=== PATIENT | female | born 1940 | race Caucasian/White ===

== ENCOUNTER 2022-03-16 17:39 | Inpatient (IN) | payer MEDICARE, OTHER ==
[2022-03-16] MEDS ORDERED: Acetaminophen 650 MG Suppository PR PRN ×2 (18:57→23:20)
[2022-03-16] MEDS ORDERED: Acetaminophen 325 MG TAB PO PRN (18:57)
[2022-03-16] MEDS ORDERED: Promethazine HCl 25 MG SUPP PR PRN (19:10)
[2022-03-16] MEDS ORDERED: Cepastat Lozenges 1 LOZ PO PRN (19:10)
[2022-03-16] MEDS ORDERED: Bisacodyl 10 MG SUPP PR PRN (19:10)
[2022-03-16] MEDS ORDERED: Benzonatate 100 MG CAP PO PRN (19:10)
[2022-03-16] MEDS ORDERED: Guaifenesin DM 100-10/5 ML UDCUP PO PRN (19:10)
[2022-03-16] MEDS ORDERED: Calcium Carbonate 500 MG ChewTAB PO PRN (19:10)
[2022-03-16] MEDS ORDERED: Bisacodyl 5 MG TAB PO PRN (19:10)
[2022-03-16] MEDS ORDERED: Ondansetron PF 4 MG/2 ML Vial IVP PRN (19:10)
[2022-03-16] MEDS ORDERED: Sodium Chloride 0.65% Nasal 44 ML BOT EA NARE PRN (19:10)
[2022-03-16] MEDS: Famotidine 20 MG TAB PO SCH (21:03)
[2022-03-16] MEDS ORDERED: traMADol HCl 50 MG TAB PO PRN (23:16)
[2022-03-17 01:12] LABS: SARS-CoV-2 NAA Rapid Test Not Detected (NotDetected)
[2022-03-17] MEDS: Levothyroxine Sodium 100 MCG TAB PO SCH (05:57)
[2022-03-17 06:44] LABS: #Lymphocytes 1.1 thou/uL (1.20-3.40); #Monocytes 0.7 thou/uL (0.11-0.59); #Neutrophils 4.8 thou/uL (1.40-6.50); %Basophils 0.7 % (0.0-1.0); %Eosinophils 0.7 % (0.0-10.0); %Lymphocytes 16.7 % (21.0-51.0); %Monocytes 9.8 % (0.0-10.0); %Neutrophils 72.1 % (42.0-75.0); Hemoglobin 8.8 g/dL (12.0-16.0); Mean Corpuscular HGB CONC 31.8 g/dL (32.0-36.0); Mean Corpuscular Hemoglobin 28.7 pg (27.0-31.0); Mean Corpuscular Volume 90.2 fL (78.0-98.0); Mean Platelet Volume 7.3 fL (7.4-10.4); Platelet Count 149 thou/uL (130-400); RBC Distribution Width 14.6 % (11.5-14.5); Red Blood Cell (RBC) Count 3.07 mill/uL (4.20-5.40); White Blood Cell (WBC) Count 6.7 thou/uL (4.8-10.8)
[2022-03-17 06:57] LABS: ALT (SGPT) 39 U/L (8-55); AST (SGOT) 25 U/L (5-34); Albumin 2.8 g/dL (3.4-4.8); Alkaline Phosphatase 104 U/L (40-110); Anion Gap 16 mmol/L (10-20); BUN (Urea Nitrogen) 20 mg/dL (9.8-20.1); Bilirubin, Total 0.8 mg/dL (0.2-1.2); Calc. Creatinine Clearance 80 mL/min (70-130); Calcium 8.5 mg/dL (7.8-10.44); Carbon Dioxide 21 mmol/L (23-31); Chloride 98 mmol/L (98-107); Estimated GFR 74; Globulin 3.2 g/dL (2.4-3.5); Glucose 97 mg/dL (83-110); Sodium 131 mmol/L (136-145)
[2022-03-17] MEDS: Hydrochlorothiazide 25 MG TAB PO SCH (08:50)
[2022-03-17] MEDS: Carvedilol 6.25 MG TAB PO SCH ×2 (08:53→20:33)
[2022-03-17] MEDS: Oxybutynin ER 5 MG TAB PO SCH (08:53)
[2022-03-17] MEDS: Polyethylene Glycol 3350 17 GM Packet PO SCH (08:54)
[2022-03-17] MEDS: Famotidine 20 MG TAB PO SCH ×2 (08:54→20:34)
[2022-03-17] MEDS: Saccharomyces boulardii 250 MG CAP PO SCH ×2 (08:54→20:35)
[2022-03-17] MEDS: Lisinopril 20 MG TAB PO SCH (08:54)
[2022-03-17] MEDS: Ezetimibe 10 MG TAB PO SCH (08:54)
[2022-03-17] MEDS ORDERED: Sulfameth/Trimethoprim DS 800-160mg TAB PO SCH (12:45)
[2022-03-17] MEDS: Sulfameth/Trimethoprim DS 800-160mg TAB PO SCH (20:34)
[2022-03-17] MEDS: Amlodipine 10 MG TAB PO SCH (20:34)
[2022-03-18] MEDS: Levothyroxine Sodium 100 MCG TAB PO SCH (05:37)
[2022-03-18 06:08] LABS: #Basophils 0.1 thou/uL (0.0-0.2); #Lymphocytes 1.3 thou/uL (1.20-3.40); #Monocytes 0.7 thou/uL (0.11-0.59); #Neutrophils 4.4 thou/uL (1.40-6.50); %Basophils 1.3 % (0.0-1.0); %Eosinophils 0.5 % (0.0-10.0); %Lymphocytes 19.6 % (21.0-51.0); %Monocytes 10.8 % (0.0-10.0); %Neutrophils 67.8 % (42.0-75.0); Hemoglobin 8.2 g/dL (12.0-16.0); Mean Corpuscular HGB CONC 32.3 g/dL (32.0-36.0); Mean Corpuscular Hemoglobin 28.8 pg (27.0-31.0); Mean Corpuscular Volume 89.4 fL (78.0-98.0); Platelet Count 139 thou/uL (130-400); RBC Distribution Width 14.5 % (11.5-14.5); Red Blood Cell (RBC) Count 2.84 mill/uL (4.20-5.40); White Blood Cell (WBC) Count 6.5 thou/uL (4.8-10.8)
[2022-03-18 06:20] LABS: Anion Gap 14 mmol/L (10-20); BUN (Urea Nitrogen) 21 mg/dL (9.8-20.1); Calc. Creatinine Clearance 67 mL/min (70-130); Calcium 8.3 mg/dL (7.8-10.44); Carbon Dioxide 22 mmol/L (23-31); Chloride 98 mmol/L (98-107); Estimated GFR 59; Glucose 111 mg/dL (83-110); Potassium 4.1 mmol/L (3.5-5.1); Sodium 130 mmol/L (136-145)
[2022-03-18] MEDS: Ondansetron ODT 4 MG TAB PO PRN ×3 (07:49→20:55)
[2022-03-18] MEDS: Carvedilol 6.25 MG TAB PO SCH ×2 (08:55→20:57)
[2022-03-18] MEDS: Hydrochlorothiazide 25 MG TAB PO SCH (08:55)
[2022-03-18] MEDS: Lisinopril 20 MG TAB PO SCH (08:56)
[2022-03-18] MEDS: Polyethylene Glycol 3350 17 GM Packet PO SCH (08:57)
[2022-03-18] MEDS: Ezetimibe 10 MG TAB PO SCH (09:05)
[2022-03-18] MEDS: Saccharomyces boulardii 250 MG CAP PO SCH ×2 (09:05→20:55)
[2022-03-18] MEDS: Oxybutynin ER 5 MG TAB PO SCH (09:05)
[2022-03-18] MEDS: Famotidine 20 MG TAB PO SCH ×2 (09:06→20:57)
[2022-03-18] MEDS: Sulfameth/Trimethoprim DS 800-160mg TAB PO SCH ×2 (09:07→20:56)
[2022-03-18] MEDS ORDERED: traMADol HCl 50 MG TAB PO PRN (10:00)
[2022-03-18] MEDS ORDERED: Loperamide HCl 2 MG CAP PO PRN (17:06)
[2022-03-18] MEDS ORDERED: Loperamide HCl 2 MG CAP PO SCH (17:15)
[2022-03-18] MEDS: Amlodipine 10 MG TAB PO SCH (20:56)
[2022-03-18] MEDS: Calcium Carbonate 500 MG ChewTAB PO PRN (23:55)
[2022-03-19 00:57] LABS: #Lymphocytes 1.2 thou/uL (1.20-3.40); #Monocytes 0.5 thou/uL (0.11-0.59); %Basophils 0.6 % (0.0-1.0); %Eosinophils 0.3 % (0.0-10.0); %Lymphocytes 20.4 % (21.0-51.0); %Monocytes 9.2 % (0.0-10.0); %Neutrophils 69.6 % (42.0-75.0); Hemoglobin 8.8 g/dL (12.0-16.0); Mean Corpuscular HGB CONC 32.1 g/dL (32.0-36.0); Mean Corpuscular Volume 90.3 fL (78.0-98.0); Mean Platelet Volume 7.7 fL (7.4-10.4); Platelet Count 79 thou/uL (130-400); RBC Distribution Width 14.7 % (11.5-14.5); Red Blood Cell (RBC) Count 3.01 mill/uL (4.20-5.40); White Blood Cell (WBC) Count 5.7 thou/uL (4.8-10.8)
[2022-03-19 01:00] LABS: Anion Gap 15 mmol/L (10-20); BUN (Urea Nitrogen) 16 mg/dL (9.8-20.1); Calc. Creatinine Clearance 76 mL/min (70-130); Calcium 8.4 mg/dL (7.8-10.44); Carbon Dioxide 21 mmol/L (23-31); Chloride 97 mmol/L (98-107); Estimated GFR 70; Glucose 94 mg/dL (83-110); Potassium 4.1 mmol/L (3.5-5.1); Sodium 129 mmol/L (136-145)
[2022-03-19 01:02] LABS: Troponin I Less than 0.010 ng/mL (< 0.028)
[2022-03-19] MEDS: hydrOXYzine 25 MG TAB PO PRN (01:27)
[2022-03-19] MEDS: Levothyroxine Sodium 100 MCG TAB PO SCH (05:36)
[2022-03-19] MEDS: Saccharomyces boulardii 250 MG CAP PO SCH ×2 (08:11→20:50)
[2022-03-19] MEDS: Sulfameth/Trimethoprim DS 800-160mg TAB PO SCH ×2 (08:12→20:50)
[2022-03-19] MEDS: Oxybutynin ER 5 MG TAB PO SCH (08:12)
[2022-03-19] MEDS: Ezetimibe 10 MG TAB PO SCH (08:13)
[2022-03-19] MEDS: Hydrochlorothiazide 25 MG TAB PO SCH (08:13)
[2022-03-19] MEDS: Famotidine 20 MG TAB PO SCH ×2 (08:16→20:50)
[2022-03-19] MEDS: Carvedilol 6.25 MG TAB PO SCH ×2 (08:17→20:50)
[2022-03-19] MEDS: Lisinopril 20 MG TAB PO SCH (08:19)
[2022-03-19] MEDS: Polyethylene Glycol 3350 17 GM Packet PO SCH (09:00)
[2022-03-19] MEDS ORDERED: Polyethylene Glycol 3350 17 GM Packet PO SCH (20:45)
[2022-03-19] MEDS: Amlodipine 10 MG TAB PO SCH (20:50)
[2022-03-20] MEDS: Levothyroxine Sodium 100 MCG TAB PO SCH (05:09)
[2022-03-20] MEDS: Oxybutynin ER 5 MG TAB PO SCH (08:11)
[2022-03-20] MEDS: Saccharomyces boulardii 250 MG CAP PO SCH ×2 (08:11→20:45)
[2022-03-20] MEDS: Sulfameth/Trimethoprim DS 800-160mg TAB PO SCH ×2 (08:11→20:45)
[2022-03-20] MEDS: Famotidine 20 MG TAB PO SCH ×2 (08:18→20:45)
[2022-03-20] MEDS: Ezetimibe 10 MG TAB PO SCH (08:18)
[2022-03-20] MEDS: Hydrochlorothiazide 25 MG TAB PO SCH (08:18)
[2022-03-20] MEDS: Polyethylene Glycol 3350 17 GM Packet PO SCH (09:00)
[2022-03-20] MEDS: Lisinopril 20 MG TAB PO SCH (09:00)
[2022-03-20] MEDS: Carvedilol 6.25 MG TAB PO SCH ×2 (09:00→20:40)
[2022-03-20 10:08] LABS: Hemoglobin 8.8 g/dL (12.0-16.0); Mean Corpuscular HGB CONC 31.3 g/dL (32.0-36.0); Mean Corpuscular Hemoglobin 28.6 pg (27.0-31.0); Mean Corpuscular Volume 91.2 fL (78.0-98.0); Mean Platelet Volume 6.6 fL (7.4-10.4); Platelet Count 143 thou/uL (130-400); RBC Distribution Width 15.4 % (11.5-14.5); Red Blood Cell (RBC) Count 3.06 mill/uL (4.20-5.40); White Blood Cell (WBC) Count 6.1 thou/uL (4.8-10.8)
[2022-03-20] MEDS: Amlodipine 10 MG TAB PO SCH (20:40)
[2022-03-20] MEDS: hydrOXYzine 25 MG TAB PO PRN (21:07)
[2022-03-21] MEDS: Levothyroxine Sodium 100 MCG TAB PO SCH (05:48)
[2022-03-21 05:58] LABS: #Basophils 0.1 thou/uL (0.0-0.2); #Eosinphils 0.1 thou/uL (0.0-0.7); #Lymphocytes 1.1 thou/uL (1.20-3.40); #Monocytes 0.6 thou/uL (0.11-0.59); #Neutrophils 2.7 thou/uL (1.40-6.50); %Basophils 1.4 % (0.0-1.0); %Eosinophils 1.4 % (0.0-10.0); %Lymphocytes 23.8 % (21.0-51.0); %Monocytes 12.3 % (0.0-10.0); %Neutrophils 61.1 % (42.0-75.0); Hemoglobin 8.2 g/dL (12.0-16.0); Mean Corpuscular HGB CONC 31.2 g/dL (32.0-36.0); Mean Corpuscular Hemoglobin 28.3 pg (27.0-31.0); Mean Corpuscular Volume 90.7 fL (78.0-98.0); Platelet Count 139 thou/uL (130-400); RBC Distribution Width 15.5 % (11.5-14.5); White Blood Cell (WBC) Count 4.4 thou/uL (4.8-10.8)
[2022-03-21 06:10] LABS: Anion Gap 13 mmol/L (10-20); BUN (Urea Nitrogen) 9 mg/dL (9.8-20.1); Calc. Creatinine Clearance 79 mL/min (70-130); Calcium 8.3 mg/dL (7.8-10.44); Carbon Dioxide 22 mmol/L (23-31); Chloride 100 mmol/L (98-107); Estimated GFR 72; Glucose 90 mg/dL (83-110); Sodium 131 mmol/L (136-145)
[2022-03-21] MEDS: Saccharomyces boulardii 250 MG CAP PO SCH ×2 (08:13→21:23)
[2022-03-21] MEDS: Sulfameth/Trimethoprim DS 800-160mg TAB PO SCH ×2 (08:13→21:23)
[2022-03-21] MEDS: Polyethylene Glycol 3350 17 GM Packet PO SCH (08:14)
[2022-03-21] MEDS: Hydrochlorothiazide 25 MG TAB PO SCH (08:15)
[2022-03-21] MEDS: Oxybutynin ER 5 MG TAB PO SCH (08:15)
[2022-03-21] MEDS: Ezetimibe 10 MG TAB PO SCH (08:15)
[2022-03-21] MEDS: Famotidine 20 MG TAB PO SCH ×2 (08:16→21:23)
[2022-03-21] MEDS: Carvedilol 6.25 MG TAB PO SCH ×2 (08:16→21:23)
[2022-03-21] MEDS: Lisinopril 20 MG TAB PO SCH (08:18)
[2022-03-21] MEDS: hydrOXYzine 25 MG TAB PO PRN (21:03)
[2022-03-21] MEDS: Ondansetron ODT 4 MG TAB PO PRN (21:03)
[2022-03-21] MEDS ORDERED: Amlodipine 5 MG TAB PO SCH (21:15)
[2022-03-21] MEDS: Amlodipine 10 MG TAB PO SCH (21:18)
[2022-03-22] MEDS: Levothyroxine Sodium 100 MCG TAB PO SCH (05:38)
[2022-03-22] MEDS: Saccharomyces boulardii 250 MG CAP PO SCH ×2 (08:51→21:50)
[2022-03-22] MEDS: Oxybutynin ER 5 MG TAB PO SCH (08:51)
[2022-03-22] MEDS: Famotidine 20 MG TAB PO SCH ×2 (08:51→21:49)
[2022-03-22] MEDS: Lisinopril 20 MG TAB PO SCH (08:52)
[2022-03-22] MEDS: Polyethylene Glycol 3350 17 GM Packet PO SCH (08:52)
[2022-03-22] MEDS: Hydrochlorothiazide 25 MG TAB PO SCH (08:52)
[2022-03-22] MEDS: Ezetimibe 10 MG TAB PO SCH (08:52)
[2022-03-22] MEDS: Carvedilol 6.25 MG TAB PO SCH ×2 (08:52→21:50)
[2022-03-22] MEDS: Acetaminophen 325 MG TAB PO PRN (13:57)
[2022-03-22] MEDS ORDERED: Amlodipine 10 MG TAB PO SCH (21:00)
[2022-03-22] MEDS: Amlodipine 5 MG TAB PO SCH (21:50)
[2022-03-23] MEDS: Levothyroxine Sodium 100 MCG TAB PO SCH (06:19)
[2022-03-23] MEDS: Oxybutynin ER 5 MG TAB PO SCH (08:34)
[2022-03-23] MEDS: Carvedilol 6.25 MG TAB PO SCH ×2 (08:34→21:24)
[2022-03-23] MEDS: Saccharomyces boulardii 250 MG CAP PO SCH ×2 (08:34→21:24)
[2022-03-23] MEDS: Hydrochlorothiazide 25 MG TAB PO SCH (08:35)
[2022-03-23] MEDS: Ezetimibe 10 MG TAB PO SCH (08:35)
[2022-03-23] MEDS: Polyethylene Glycol 3350 17 GM Packet PO SCH (08:35)
[2022-03-23] MEDS: Famotidine 20 MG TAB PO SCH ×2 (08:35→21:23)
[2022-03-23] MEDS: Lisinopril 20 MG TAB PO SCH (08:39)
[2022-03-23] MEDS: Amlodipine 5 MG TAB PO SCH (21:22)
[2022-03-23] MEDS: hydrOXYzine 25 MG TAB PO PRN (21:23)
[2022-03-24] MEDS: Levothyroxine Sodium 100 MCG TAB PO SCH (05:49)
[2022-03-24 06:24] LABS: Anion Gap 13 mmol/L (10-20); BUN (Urea Nitrogen) 8 mg/dL (9.8-20.1); Calc. Creatinine Clearance 81 mL/min (70-130); Calcium 8.3 mg/dL (7.8-10.44); Carbon Dioxide 21 mmol/L (23-31); Chloride 100 mmol/L (98-107); Estimated GFR 74; Glucose 89 mg/dL (83-110); Potassium 3.8 mmol/L (3.5-5.1); Sodium 130 mmol/L (136-145)
[2022-03-24 06:40] LABS: #Basophils 0.1 thou/uL (0.0-0.2); #Eosinphils 0.1 thou/uL (0.0-0.7); #Lymphocytes 1.6 thou/uL (1.20-3.40); #Monocytes 0.7 thou/uL (0.11-0.59); %Basophils 1.3 % (0.0-1.0); %Lymphocytes 36.6 % (21.0-51.0); %Monocytes 15.7 % (0.0-10.0); %Neutrophils 45.4 % (42.0-75.0); Hemoglobin 8.6 g/dL (12.0-16.0); Mean Corpuscular HGB CONC 31.1 g/dL (32.0-36.0); Mean Corpuscular Hemoglobin 28.9 pg (27.0-31.0); Mean Platelet Volume 6.4 fL (7.4-10.4); Platelet Count 149 thou/uL (130-400); RBC Distribution Width 16.3 % (11.5-14.5); Red Blood Cell (RBC) Count 2.99 mill/uL (4.20-5.40); White Blood Cell (WBC) Count 4.5 thou/uL (4.8-10.8)
[2022-03-24] MEDS: Ezetimibe 10 MG TAB PO SCH (08:05)
[2022-03-24] MEDS: Saccharomyces boulardii 250 MG CAP PO SCH ×2 (08:05→21:03)
[2022-03-24] MEDS: Hydrochlorothiazide 25 MG TAB PO SCH (08:05)
[2022-03-24] MEDS: Famotidine 20 MG TAB PO SCH ×2 (08:05→21:02)
[2022-03-24] MEDS: Oxybutynin ER 5 MG TAB PO SCH (08:05)
[2022-03-24] MEDS: Carvedilol 6.25 MG TAB PO SCH ×2 (08:05→21:03)
[2022-03-24] MEDS: Polyethylene Glycol 3350 17 GM Packet PO SCH (08:07)
[2022-03-24] MEDS: Lisinopril 20 MG TAB PO SCH (08:10)
[2022-03-24] MEDS: Ondansetron ODT 4 MG TAB PO PRN (11:09)
[2022-03-24] MEDS: Metoclopramide HCl 10 MG TAB PO SCH (16:10)
[2022-03-24] MEDS: Amlodipine 5 MG TAB PO SCH (21:03)
[2022-03-25] MEDS: Levothyroxine Sodium 100 MCG TAB PO SCH (05:54)
[2022-03-25] MEDS: Metoclopramide HCl 10 MG TAB PO SCH ×2 (07:35→17:52)
[2022-03-25] MEDS: Ezetimibe 10 MG TAB PO SCH (08:18)
[2022-03-25] MEDS: Saccharomyces boulardii 250 MG CAP PO SCH ×2 (08:18→20:15)
[2022-03-25] MEDS: Famotidine 20 MG TAB PO SCH ×2 (08:18→20:15)
[2022-03-25] MEDS: Oxybutynin ER 5 MG TAB PO SCH (08:19)
[2022-03-25] MEDS: Senokot S 8.6-50 MG TAB PO PRN (08:19)
[2022-03-25] MEDS: Hydrochlorothiazide 25 MG TAB PO SCH (08:20)
[2022-03-25] MEDS: Lisinopril 20 MG TAB PO SCH (08:21)
[2022-03-25] MEDS: Polyethylene Glycol 3350 17 GM Packet PO SCH (08:21)
[2022-03-25] MEDS: Carvedilol 6.25 MG TAB PO SCH ×2 (08:21→20:15)
[2022-03-25] MEDS: Acetaminophen 325 MG TAB PO PRN (20:16)
[2022-03-25] MEDS: Amlodipine 5 MG TAB PO SCH (20:24)
[2022-03-26 05:45] LABS: #Basophils 0.1 thou/uL (0.0-0.2); #Eosinphils 0.1 thou/uL (0.0-0.7); #Lymphocytes 2.2 thou/uL (1.20-3.40); #Monocytes 0.6 thou/uL (0.11-0.59); #Neutrophils 2.3 thou/uL (1.40-6.50); %Basophils 1.2 % (0.0-1.0); %Eosinophils 1.8 % (0.0-10.0); %Monocytes 11.9 % (0.0-10.0); %Neutrophils 43.2 % (42.0-75.0); Hemoglobin 9.5 g/dL (12.0-16.0); Mean Corpuscular HGB CONC 31.3 g/dL (32.0-36.0); Mean Corpuscular Hemoglobin 29.2 pg (27.0-31.0); Mean Corpuscular Volume 93.3 fL (78.0-98.0); Mean Platelet Volume 6.2 fL (7.4-10.4); Platelet Count 179 thou/uL (130-400); RBC Distribution Width 16.8 % (11.5-14.5); Red Blood Cell (RBC) Count 3.23 mill/uL (4.20-5.40); White Blood Cell (WBC) Count 5.3 thou/uL (4.8-10.8)
[2022-03-26 05:58] LABS: Anion Gap 13 mmol/L (10-20); BUN (Urea Nitrogen) 7 mg/dL (9.8-20.1); Calc. Creatinine Clearance 84 mL/min (70-130); Calcium 8.4 mg/dL (7.8-10.44); Carbon Dioxide 21 mmol/L (23-31); Chloride 102 mmol/L (98-107); Estimated GFR 77; Glucose 93 mg/dL (83-110); Potassium 3.7 mmol/L (3.5-5.1); Sodium 132 mmol/L (136-145)
[2022-03-26] MEDS: Levothyroxine Sodium 100 MCG TAB PO SCH (06:03)
[2022-03-26] MEDS: Metoclopramide HCl 10 MG TAB PO SCH ×2 (07:21→16:09)
[2022-03-26] MEDS: Famotidine 20 MG TAB PO SCH (07:50)
[2022-03-26] MEDS: Saccharomyces boulardii 250 MG CAP PO SCH ×2 (07:51→20:35)
[2022-03-26] MEDS: Oxybutynin ER 5 MG TAB PO SCH (07:51)
[2022-03-26] MEDS: Carvedilol 6.25 MG TAB PO SCH ×2 (07:52→20:35)
[2022-03-26] MEDS: Hydrochlorothiazide 25 MG TAB PO SCH (07:53)
[2022-03-26] MEDS: Ezetimibe 10 MG TAB PO SCH (07:53)
[2022-03-26] MEDS: Lisinopril 20 MG TAB PO SCH (07:53)
[2022-03-26] MEDS: Polyethylene Glycol 3350 17 GM Packet PO SCH (07:55)
[2022-03-26 16:59] LABS: Iron 57 ug/dL (50-170); Iron Binding Capacity, Total 231 mcg/dL (265-497)
[2022-03-26] MEDS: Amlodipine 5 MG TAB PO SCH (20:35)
[2022-03-27] MEDS: Levothyroxine Sodium 100 MCG TAB PO SCH (06:13)
[2022-03-27] MEDS: Metoclopramide HCl 10 MG TAB PO SCH ×2 (07:10→16:18)
[2022-03-27 08:03] LABS: #Basophils 0.1 thou/uL (0.0-0.2); #Eosinphils 0.1 thou/uL (0.0-0.7); #Lymphocytes 1.8 thou/uL (1.20-3.40); #Monocytes 0.5 thou/uL (0.11-0.59); #Neutrophils 2.5 thou/uL (1.40-6.50); %Basophils 1.5 % (0.0-1.0); %Eosinophils 1.4 % (0.0-10.0); %Lymphocytes 35.5 % (21.0-51.0); %Monocytes 10.6 % (0.0-10.0); Hemoglobin 9.6 g/dL (12.0-16.0); Mean Corpuscular HGB CONC 31.5 g/dL (32.0-36.0); Mean Corpuscular Hemoglobin 29.6 pg (27.0-31.0); Mean Corpuscular Volume 93.8 fL (78.0-98.0); Mean Platelet Volume 6.4 fL (7.4-10.4); Platelet Count 167 thou/uL (130-400); Red Blood Cell (RBC) Count 3.23 mill/uL (4.20-5.40)
[2022-03-27 08:14] LABS: Anion Gap 14 mmol/L (10-20); BUN (Urea Nitrogen) 7 mg/dL (9.8-20.1); Calc. Creatinine Clearance 89 mL/min (70-130); Calcium 8.2 mg/dL (7.8-10.44); Carbon Dioxide 21 mmol/L (23-31); Chloride 103 mmol/L (98-107); Estimated GFR 83; Glucose 94 mg/dL (83-110); Potassium 3.6 mmol/L (3.5-5.1); Sodium 134 mmol/L (136-145)
[2022-03-27] MEDS: Carvedilol 6.25 MG TAB PO SCH ×2 (08:40→21:42)
[2022-03-27] MEDS: Oxybutynin ER 5 MG TAB PO SCH (08:41)
[2022-03-27] MEDS: Ezetimibe 10 MG TAB PO SCH (08:41)
[2022-03-27] MEDS: Lisinopril 20 MG TAB PO SCH (08:41)
[2022-03-27] MEDS: Saccharomyces boulardii 250 MG CAP PO SCH ×2 (08:41→21:42)
[2022-03-27] MEDS: Polyethylene Glycol 3350 17 GM Packet PO SCH (08:42)
[2022-03-27] MEDS: Acetaminophen 325 MG TAB PO PRN (21:41)
[2022-03-27] MEDS: Amlodipine 5 MG TAB PO SCH (21:42)
[2022-03-28] MEDS: Levothyroxine Sodium 100 MCG TAB PO SCH (06:24)
[2022-03-28] MEDS: Metoclopramide HCl 10 MG TAB PO SCH ×2 (07:16→15:59)
[2022-03-28] MEDS: Oxybutynin ER 5 MG TAB PO SCH (08:06)
[2022-03-28] MEDS: Saccharomyces boulardii 250 MG CAP PO SCH ×2 (08:06→20:48)
[2022-03-28] MEDS: Ezetimibe 10 MG TAB PO SCH (08:06)
[2022-03-28] MEDS: Polyethylene Glycol 3350 17 GM Packet PO SCH (08:06)
[2022-03-28] MEDS: Carvedilol 6.25 MG TAB PO SCH ×2 (08:06→20:49)
[2022-03-28] MEDS: Lisinopril 20 MG TAB PO SCH (08:07)
[2022-03-28] MEDS: Acetaminophen 325 MG TAB PO PRN (19:13)
[2022-03-28] MEDS: Amlodipine 5 MG TAB PO SCH (20:48)
[2022-03-29] MEDS: Levothyroxine Sodium 100 MCG TAB PO SCH (05:36)
[2022-03-29] MEDS: Polyethylene Glycol 3350 17 GM Packet PO SCH (09:29)
[2022-03-29] MEDS: Oxybutynin ER 5 MG TAB PO SCH (09:29)
[2022-03-29] MEDS: Carvedilol 6.25 MG TAB PO SCH ×2 (09:30→20:47)
[2022-03-29] MEDS: Metoclopramide HCl 10 MG TAB PO SCH ×2 (09:30→17:16)
[2022-03-29] MEDS: Ezetimibe 10 MG TAB PO SCH (09:30)
[2022-03-29] MEDS: Saccharomyces boulardii 250 MG CAP PO SCH ×2 (09:30→20:32)
[2022-03-29] MEDS: Lisinopril 20 MG TAB PO SCH (09:30)
[2022-03-30] MEDS: Levothyroxine Sodium 100 MCG TAB PO SCH (05:24)
[2022-03-30] MEDS: Metoclopramide HCl 10 MG TAB PO SCH ×2 (07:45→16:53)
[2022-03-30] MEDS: Saccharomyces boulardii 250 MG CAP PO SCH ×2 (08:41→20:29)
[2022-03-30] MEDS: Oxybutynin ER 5 MG TAB PO SCH (08:41)
[2022-03-30] MEDS: Carvedilol 6.25 MG TAB PO SCH ×2 (08:42→20:29)
[2022-03-30] MEDS: Lisinopril 20 MG TAB PO SCH (08:42)
[2022-03-30] MEDS: Ezetimibe 10 MG TAB PO SCH (08:42)
[2022-03-30] MEDS: Polyethylene Glycol 3350 17 GM Packet PO SCH (08:43)
[2022-03-31] MEDS: Levothyroxine Sodium 100 MCG TAB PO SCH (05:36)
[2022-03-31] MEDS: Metoclopramide HCl 10 MG TAB PO SCH ×2 (09:06→16:41)
[2022-03-31] MEDS: Carvedilol 6.25 MG TAB PO SCH ×2 (09:06→21:07)
[2022-03-31] MEDS: Ezetimibe 10 MG TAB PO SCH (09:07)
[2022-03-31] MEDS: Oxybutynin ER 5 MG TAB PO SCH (09:07)
[2022-03-31] MEDS: Saccharomyces boulardii 250 MG CAP PO SCH ×2 (09:07→21:07)
[2022-03-31] MEDS: Polyethylene Glycol 3350 17 GM Packet PO SCH (09:08)
[2022-03-31] MEDS: Lisinopril 20 MG TAB PO SCH (09:08)
[2022-04-01] MEDS: Levothyroxine Sodium 100 MCG TAB PO SCH (05:57)
[2022-04-01] MEDS: Metoclopramide HCl 10 MG TAB PO SCH ×2 (08:07→17:38)
[2022-04-01] MEDS: Lisinopril 20 MG TAB PO SCH (08:07)
[2022-04-01] MEDS: Ezetimibe 10 MG TAB PO SCH (08:07)
[2022-04-01] MEDS: Saccharomyces boulardii 250 MG CAP PO SCH ×2 (08:07→21:36)
[2022-04-01] MEDS: Oxybutynin ER 5 MG TAB PO SCH (08:07)
[2022-04-01] MEDS: Carvedilol 6.25 MG TAB PO SCH ×2 (08:08→21:35)
[2022-04-01] MEDS: Polyethylene Glycol 3350 17 GM Packet PO SCH ×2 (08:08→08:18)
[2022-04-01] MEDS ORDERED: Carvedilol 6.25 MG TAB PO SCH (08:45)
[2022-04-01] MEDS ORDERED: Sodium Chloride 0.9% 500 ML IVPB SCH (13:00)
[2022-04-01] MEDS: Nystatin Powder 15 GM BOT TOP SCH (21:36)
[2022-04-02] MEDS: Senokot S 8.6-50 MG TAB PO PRN (04:13)
[2022-04-02] MEDS: Levothyroxine Sodium 100 MCG TAB PO SCH (05:07)
[2022-04-02 05:54] LABS: #Basophils 0.1 thou/uL (0.0-0.2); #Lymphocytes 1.7 thou/uL (1.20-3.40); #Monocytes 0.6 thou/uL (0.11-0.59); #Neutrophils 1.9 thou/uL (1.40-6.50); %Basophils 1.2 % (0.0-1.0); %Eosinophils 0.7 % (0.0-10.0); %Lymphocytes 39.9 % (21.0-51.0); %Monocytes 13.6 % (0.0-10.0); %Neutrophils 44.5 % (42.0-75.0); Hemoglobin 9.6 g/dL (12.0-16.0); Mean Corpuscular HGB CONC 31.1 g/dL (32.0-36.0); Mean Corpuscular Hemoglobin 29.3 pg (27.0-31.0); Mean Corpuscular Volume 94.3 fL (78.0-98.0); Mean Platelet Volume 5.8 fL (7.4-10.4); Platelet Count 158 thou/uL (130-400); Red Blood Cell (RBC) Count 3.29 mill/uL (4.20-5.40); White Blood Cell (WBC) Count 4.2 thou/uL (4.8-10.8)
[2022-04-02 06:10] LABS: ALT (SGPT) 14 U/L (8-55); AST (SGOT) 11 U/L (5-34); Albumin 2.9 g/dL (3.4-4.8); Alkaline Phosphatase 67 U/L (40-110); Anion Gap 15 mmol/L (10-20); BUN (Urea Nitrogen) 10 mg/dL (9.8-20.1); Bilirubin, Total 0.7 mg/dL (0.2-1.2); Calc. Creatinine Clearance 91 mL/min (70-130); Calcium 8.1 mg/dL (7.8-10.44); Carbon Dioxide 20 mmol/L (23-31); Chloride 102 mmol/L (98-107); Estimated GFR 87; Globulin 3.3 g/dL (2.4-3.5); Glucose 92 mg/dL (83-110); Sodium 133 mmol/L (136-145)
[2022-04-02 06:16] LABS: Protein, Total 6.2 g/dL (5.8-8.1)
[2022-04-02] MEDS: Saccharomyces boulardii 250 MG CAP PO SCH ×2 (07:49→20:35)
[2022-04-02] MEDS: Oxybutynin ER 5 MG TAB PO SCH (07:49)
[2022-04-02] MEDS: Metoclopramide HCl 10 MG TAB PO SCH ×2 (07:49→17:20)
[2022-04-02] MEDS: Ezetimibe 10 MG TAB PO SCH (07:49)
[2022-04-02] MEDS: Carvedilol 6.25 MG TAB PO SCH ×2 (07:50→20:34)
[2022-04-02] MEDS: Lisinopril 20 MG TAB PO SCH (07:50)
[2022-04-02] MEDS: Nystatin Powder 15 GM BOT TOP SCH ×2 (07:53→20:36)
[2022-04-02] MEDS: Polyethylene Glycol 3350 17 GM Packet PO SCH (07:54)
[2022-04-03] MEDS: Levothyroxine Sodium 100 MCG TAB PO SCH (05:53)
[2022-04-03] MEDS: Metoclopramide HCl 10 MG TAB PO SCH ×2 (08:13→16:42)
[2022-04-03] MEDS: Saccharomyces boulardii 250 MG CAP PO SCH ×2 (08:13→22:00)
[2022-04-03] MEDS: Lisinopril 20 MG TAB PO SCH (08:14)
[2022-04-03] MEDS: Oxybutynin ER 5 MG TAB PO SCH (08:14)
[2022-04-03] MEDS: Ezetimibe 10 MG TAB PO SCH (08:15)
[2022-04-03] MEDS: Nystatin Powder 15 GM BOT TOP SCH (08:16)
[2022-04-03] MEDS: Polyethylene Glycol 3350 17 GM Packet PO SCH (08:38)
[2022-04-03] MEDS: Carvedilol 6.25 MG TAB PO SCH ×2 (11:00→21:59)
[2022-04-04] MEDS: Nystatin Powder 15 GM BOT TOP SCH ×3 (01:06→20:22)
[2022-04-04] MEDS: Levothyroxine Sodium 100 MCG TAB PO SCH (06:14)
[2022-04-04] MEDS: Metoclopramide HCl 10 MG TAB PO SCH ×2 (07:35→16:35)
[2022-04-04] MEDS: Polyethylene Glycol 3350 17 GM Packet PO SCH (08:00)
[2022-04-04] MEDS: Oxybutynin ER 5 MG TAB PO SCH (08:01)
[2022-04-04] MEDS: Saccharomyces boulardii 250 MG CAP PO SCH ×2 (08:01→20:17)
[2022-04-04] MEDS: Ezetimibe 10 MG TAB PO SCH (08:02)
[2022-04-04] MEDS: Carvedilol 6.25 MG TAB PO SCH ×2 (08:02→20:17)
[2022-04-04] MEDS: Lisinopril 20 MG TAB PO SCH (08:03)
[2022-04-05] MEDS: Levothyroxine Sodium 100 MCG TAB PO SCH (06:08)
[2022-04-05] MEDS: Oxybutynin ER 5 MG TAB PO SCH (09:03)
[2022-04-05] MEDS: Lisinopril 20 MG TAB PO SCH (09:03)
[2022-04-05] MEDS: Carvedilol 6.25 MG TAB PO SCH ×2 (09:04→21:12)
[2022-04-05] MEDS: Ezetimibe 10 MG TAB PO SCH (09:04)
[2022-04-05] MEDS: Polyethylene Glycol 3350 17 GM Packet PO SCH (09:04)
[2022-04-05] MEDS: Metoclopramide HCl 10 MG TAB PO SCH ×2 (09:04→16:39)
[2022-04-05] MEDS: Nystatin Powder 15 GM BOT TOP SCH ×2 (09:04→21:13)
[2022-04-05] MEDS: Saccharomyces boulardii 250 MG CAP PO SCH ×2 (09:04→21:12)
[2022-04-06] MEDS: Levothyroxine Sodium 100 MCG TAB PO SCH (05:49)
[2022-04-06] MEDS: Metoclopramide HCl 10 MG TAB PO SCH ×2 (07:51→16:22)
[2022-04-06] MEDS: Carvedilol 6.25 MG TAB PO SCH ×2 (09:24→20:57)
[2022-04-06] MEDS: Ezetimibe 10 MG TAB PO SCH (09:24)
[2022-04-06] MEDS: Lisinopril 20 MG TAB PO SCH (09:24)
[2022-04-06] MEDS: Saccharomyces boulardii 250 MG CAP PO SCH ×2 (09:24→20:58)
[2022-04-06] MEDS: Oxybutynin ER 5 MG TAB PO SCH (09:25)
[2022-04-06] MEDS: Polyethylene Glycol 3350 17 GM Packet PO SCH (09:26)
[2022-04-06] MEDS: Nystatin Powder 15 GM BOT TOP SCH ×2 (09:27→20:58)
[2022-04-07] MEDS: Levothyroxine Sodium 100 MCG TAB PO SCH (05:50)
[2022-04-07] MEDS: Metoclopramide HCl 10 MG TAB PO SCH ×2 (07:10→16:37)
[2022-04-07] MEDS: Ezetimibe 10 MG TAB PO SCH (08:17)
[2022-04-07] MEDS: Carvedilol 6.25 MG TAB PO SCH ×2 (08:17→20:59)
[2022-04-07] MEDS: Saccharomyces boulardii 250 MG CAP PO SCH ×2 (08:17→20:59)
[2022-04-07] MEDS: Oxybutynin ER 5 MG TAB PO SCH (08:17)
[2022-04-07] MEDS: Nystatin Powder 15 GM BOT TOP SCH ×2 (08:21→21:00)
[2022-04-07] MEDS: Lisinopril 20 MG TAB PO SCH (08:22)
[2022-04-07] MEDS: Polyethylene Glycol 3350 17 GM Packet PO SCH (08:22)
[2022-04-08] MEDS: Levothyroxine Sodium 100 MCG TAB PO SCH (05:17)
[2022-04-08] MEDS: Oxybutynin ER 5 MG TAB PO SCH (08:06)
[2022-04-08] MEDS: Saccharomyces boulardii 250 MG CAP PO SCH ×2 (08:06→20:11)
[2022-04-08] MEDS: Ezetimibe 10 MG TAB PO SCH (08:07)
[2022-04-08] MEDS: Lisinopril 20 MG TAB PO SCH (08:07)
[2022-04-08] MEDS: Metoclopramide HCl 10 MG TAB PO SCH ×2 (08:07→16:20)
[2022-04-08] MEDS: Nystatin Powder 15 GM BOT TOP SCH ×2 (08:08→20:11)
[2022-04-08] MEDS: Carvedilol 6.25 MG TAB PO SCH ×2 (08:09→20:11)
[2022-04-08] MEDS: Polyethylene Glycol 3350 17 GM Packet PO SCH (08:09)
[2022-04-08] MEDS ORDERED: Senokot S 8.6-50 MG TAB PO PRN (09:15)
[2022-04-09] MEDS: Levothyroxine Sodium 100 MCG TAB PO SCH (06:29)
[2022-04-09] MEDS: Metoclopramide HCl 10 MG TAB PO SCH ×2 (07:40→16:18)
[2022-04-09] MEDS: Nystatin Powder 15 GM BOT TOP SCH ×2 (07:49→20:59)
[2022-04-09] MEDS: Saccharomyces boulardii 250 MG CAP PO SCH ×2 (07:50→20:56)
[2022-04-09] MEDS: Oxybutynin ER 5 MG TAB PO SCH (07:50)
[2022-04-09] MEDS: Ezetimibe 10 MG TAB PO SCH (07:50)
[2022-04-09] MEDS: Lisinopril 20 MG TAB PO SCH (07:51)
[2022-04-09] MEDS: Carvedilol 6.25 MG TAB PO SCH ×2 (07:51→20:56)
[2022-04-09] MEDS: Polyethylene Glycol 3350 17 GM Packet PO SCH (07:52)
[2022-04-09 09:45] LABS: Anion Gap 15 mmol/L (10-20); BUN (Urea Nitrogen) 8 mg/dL (9.8-20.1); Calc. Creatinine Clearance 82 mL/min (70-130); Calcium 8.2 mg/dL (7.8-10.44); Carbon Dioxide 21 mmol/L (23-31); Chloride 103 mmol/L (98-107); Estimated GFR 79; Glucose 133 mg/dL (83-110); Sodium 135 mmol/L (136-145)
[2022-04-09 09:49] LABS: #Lymphocytes 1.8 thou/uL (1.20-3.40); #Monocytes 0.5 thou/uL (0.11-0.59); #Neutrophils 2.7 thou/uL (1.40-6.50); %Basophils 0.7 % (0.0-1.0); %Eosinophils 0.7 % (0.0-10.0); %Lymphocytes 35.5 % (21.0-51.0); %Monocytes 9.2 % (0.0-10.0); %Neutrophils 53.9 % (42.0-75.0); Hemoglobin 9.7 g/dL (12.0-16.0); Mean Corpuscular HGB CONC 31.6 g/dL (32.0-36.0); Mean Corpuscular Hemoglobin 29.7 pg (27.0-31.0); Platelet Count 163 thou/uL (130-400); RBC Distribution Width 15.6 % (11.5-14.5); Red Blood Cell (RBC) Count 3.25 mill/uL (4.20-5.40)
[2022-04-09] MEDS: Calcium Carbonate 500 MG ChewTAB PO PRN (21:54)
[2022-04-10] MEDS: Levothyroxine Sodium 100 MCG TAB PO SCH (05:34)
[2022-04-10] MEDS: Saccharomyces boulardii 250 MG CAP PO SCH ×2 (09:10→20:15)
[2022-04-10] MEDS: Oxybutynin ER 5 MG TAB PO SCH (09:10)
[2022-04-10] MEDS: Lisinopril 20 MG TAB PO SCH (09:10)
[2022-04-10] MEDS: Carvedilol 6.25 MG TAB PO SCH ×2 (09:11→20:12)
[2022-04-10] MEDS: Metoclopramide HCl 10 MG TAB PO SCH ×2 (09:11→16:30)
[2022-04-10] MEDS: Ezetimibe 10 MG TAB PO SCH (09:11)
[2022-04-10] MEDS: Nystatin Powder 15 GM BOT TOP SCH ×2 (09:11→20:15)
[2022-04-10] MEDS: Polyethylene Glycol 3350 17 GM Packet PO SCH (09:12)
[2022-04-10 15:01] VITALS: BMI 35.2
[2022-04-11] MEDS: Levothyroxine Sodium 100 MCG TAB PO SCH (05:45)
[2022-04-11] MEDS: Nystatin Powder 15 GM BOT TOP SCH ×2 (08:56→20:22)
[2022-04-11] MEDS: Oxybutynin ER 5 MG TAB PO SCH (08:56)
[2022-04-11] MEDS: Polyethylene Glycol 3350 17 GM Packet PO SCH (08:56)
[2022-04-11] MEDS: Metoclopramide HCl 10 MG TAB PO SCH ×2 (08:56→17:08)
[2022-04-11] MEDS: Carvedilol 6.25 MG TAB PO SCH ×2 (08:57→20:23)
[2022-04-11] MEDS: Saccharomyces boulardii 250 MG CAP PO SCH ×2 (08:57→20:24)
[2022-04-11] MEDS: Lisinopril 20 MG TAB PO SCH (08:57)
[2022-04-11] MEDS: Ezetimibe 10 MG TAB PO SCH (08:57)
[2022-04-12] MEDS: Levothyroxine Sodium 100 MCG TAB PO SCH (06:06)
[2022-04-12 06:25] LABS: #Basophils 0.1 thou/uL (0.0-0.2); #Lymphocytes 1.7 thou/uL (1.20-3.40); #Monocytes 0.4 thou/uL (0.11-0.59); #Neutrophils 2.2 thou/uL (1.40-6.50); %Basophils 1.2 % (0.0-1.0); %Eosinophils 0.7 % (0.0-10.0); %Lymphocytes 39.2 % (21.0-51.0); %Monocytes 9.7 % (0.0-10.0); %Neutrophils 49.2 % (42.0-75.0); Hemoglobin 9.7 g/dL (12.0-16.0); Mean Corpuscular HGB CONC 31.8 g/dL (32.0-36.0); Mean Corpuscular Hemoglobin 29.5 pg (27.0-31.0); Mean Corpuscular Volume 92.8 fL (78.0-98.0); Mean Platelet Volume 6.3 fL (7.4-10.4); Platelet Count 162 thou/uL (130-400); RBC Distribution Width 15.6 % (11.5-14.5); Red Blood Cell (RBC) Count 3.27 mill/uL (4.20-5.40); White Blood Cell (WBC) Count 4.4 thou/uL (4.8-10.8)
[2022-04-12 06:49] LABS: Anion Gap 14 mmol/L (10-20); BUN (Urea Nitrogen) 7 mg/dL (9.8-20.1); Calc. Creatinine Clearance 93 mL/min (70-130); Calcium 8.3 mg/dL (7.8-10.44); Carbon Dioxide 24 mmol/L (23-31); Chloride 104 mmol/L (98-107); Estimated GFR 87; Glucose 90 mg/dL (83-110); Potassium 3.8 mmol/L (3.5-5.1); Sodium 138 mmol/L (136-145)
[2022-04-12] MEDS: Lisinopril 20 MG TAB PO SCH (08:45)
[2022-04-12] MEDS: Saccharomyces boulardii 250 MG CAP PO SCH ×2 (08:45→20:31)
[2022-04-12] MEDS: Carvedilol 6.25 MG TAB PO SCH ×2 (08:45→20:31)
[2022-04-12] MEDS: Ezetimibe 10 MG TAB PO SCH (08:45)
[2022-04-12] MEDS: Nystatin Powder 15 GM BOT TOP SCH ×2 (08:46→20:25)
[2022-04-12] MEDS: Metoclopramide HCl 10 MG TAB PO SCH ×2 (08:46→16:17)
[2022-04-12] MEDS: Polyethylene Glycol 3350 17 GM Packet PO SCH (08:46)
[2022-04-12] MEDS: Oxybutynin ER 5 MG TAB PO SCH (08:47)
[2022-04-12] MEDS ORDERED: Oxybutynin ER 5 MG TAB PO SCH (12:45)
[2022-04-13] MEDS: Levothyroxine Sodium 100 MCG TAB PO SCH (05:30)
[2022-04-13] MEDS: Oxybutynin ER 5 MG TAB PO SCH (07:37)
[2022-04-13] MEDS: Lisinopril 20 MG TAB PO SCH (07:37)
[2022-04-13] MEDS: Saccharomyces boulardii 250 MG CAP PO SCH ×2 (07:37→20:18)
[2022-04-13] MEDS: Carvedilol 6.25 MG TAB PO SCH ×2 (07:37→20:18)
[2022-04-13] MEDS: Nystatin Powder 15 GM BOT TOP SCH ×2 (07:38→20:18)
[2022-04-13] MEDS: Ezetimibe 10 MG TAB PO SCH (07:38)
[2022-04-13] MEDS: Artificial Tear Sol 15 ML BOT EA EYE PRN ×2 (07:38→20:17)
[2022-04-13] MEDS: Polyethylene Glycol 3350 17 GM Packet PO SCH (07:38)
[2022-04-13] MEDS: Metoclopramide HCl 10 MG TAB PO SCH ×2 (07:38→16:18)
[2022-04-14] MEDS: Levothyroxine Sodium 100 MCG TAB PO SCH (05:09)
[2022-04-14] MEDS: Metoclopramide HCl 10 MG TAB PO SCH ×2 (07:26→16:57)
[2022-04-14] MEDS: Saccharomyces boulardii 250 MG CAP PO SCH ×2 (08:24→21:54)
[2022-04-14] MEDS: Oxybutynin ER 5 MG TAB PO SCH (08:25)
[2022-04-14] MEDS: Lisinopril 20 MG TAB PO SCH (08:25)
[2022-04-14] MEDS: Carvedilol 6.25 MG TAB PO SCH ×2 (08:26→21:54)
[2022-04-14] MEDS: Ezetimibe 10 MG TAB PO SCH (08:27)
[2022-04-14] MEDS: Nystatin Powder 15 GM BOT TOP SCH ×2 (08:27→21:53)
[2022-04-14] MEDS: Polyethylene Glycol 3350 17 GM Packet PO SCH (08:28)
[2022-04-14 23:39] VITALS: BP 155/72; TEMP 97.6
[2022-04-15 05:30] LABS: #Lymphocytes 1.6 thou/uL (1.20-3.40); #Monocytes 0.4 thou/uL (0.11-0.59); #Neutrophils 1.7 thou/uL (1.40-6.50); %Eosinophils 1.1 % (0.0-10.0); %Lymphocytes 41.5 % (21.0-51.0); %Monocytes 11.2 % (0.0-10.0); %Neutrophils 45.2 % (42.0-75.0); Hemoglobin 9.5 g/dL (12.0-16.0); Mean Corpuscular HGB CONC 32.5 g/dL (32.0-36.0); Mean Corpuscular Volume 92.5 fL (78.0-98.0); Mean Platelet Volume 6.6 fL (7.4-10.4); Platelet Count 170 thou/uL (130-400); RBC Distribution Width 14.9 % (11.5-14.5); Red Blood Cell (RBC) Count 3.15 mill/uL (4.20-5.40); White Blood Cell (WBC) Count 3.8 thou/uL (4.8-10.8)
[2022-04-15 05:42] LABS: Anion Gap 12 mmol/L (10-20); BUN (Urea Nitrogen) 8 mg/dL (9.8-20.1); Calc. Creatinine Clearance 94 mL/min (70-130); Calcium 8.4 mg/dL (7.8-10.44); Carbon Dioxide 25 mmol/L (23-31); Chloride 106 mmol/L (98-107); Estimated GFR 87; Glucose 94 mg/dL (83-110); Potassium 3.6 mmol/L (3.5-5.1); Sodium 139 mmol/L (136-145)
[2022-04-15] MEDS: Levothyroxine Sodium 100 MCG TAB PO SCH (06:16)
[2022-04-15] MEDS: Polyethylene Glycol 3350 17 GM Packet PO SCH (07:52)
[2022-04-15] MEDS: Saccharomyces boulardii 250 MG CAP PO SCH (07:52)
[2022-04-15] MEDS: Carvedilol 6.25 MG TAB PO SCH (07:52)
[2022-04-15] MEDS: Oxybutynin ER 5 MG TAB PO SCH (07:53)
[2022-04-15] MEDS: Lisinopril 20 MG TAB PO SCH (07:53)
[2022-04-15] MEDS: Metoclopramide HCl 10 MG TAB PO SCH (07:53)
[2022-04-15] MEDS: Ezetimibe 10 MG TAB PO SCH (07:54)
[2022-04-15] MEDS: Nystatin Powder 15 GM BOT TOP SCH (07:54)
== END 2022-04-15 15:45 | disposition home or self-care (01) | DRG 948 ==
LOC: NAV ACUTE 19:11
PROVIDERS: ADMIT Family Medicine; ATTEND Family Medicine
DX: R53.1 Weakness (principal); E87.1 Hypo-osmolality and hyponatremia; I10 Essential (primary) hypertension; E03.9 Hypothyroidism, unspecified; M19.90 Unspecified osteoarthritis, unspecified site; E78.2 Mixed hyperlipidemia; M17.0 Bilateral primary osteoarthritis of knee; M81.0 Age-related osteoporosis without current pathological fracture; D69.6 Thrombocytopenia, unspecified; F32.9 Major depressive disorder, single episode, unspecified; R33.9 Retention of urine, unspecified; D63.8 Anemia in other chronic diseases classified elsewhere; Z20.822 Contact with and (suspected) exposure to COVID-19; S12.500D Unspecified displaced fracture of sixth cervical vertebra, subsequent encounter for fracture with routine healing; Z90.49 Acquired absence of other specified parts of digestive tract; Z90.710 Acquired absence of both cervix and uterus; Z88.5 Allergy status to narcotic agent; Z79.899 Other long term (current) drug therapy
CPT/HCPCS: 36415; 70450; 71045; 72125; 74018; 80048; 80053; 82728; 83540; 83550; 83930; 83935; 84300; 84484; 85025; 85027; 87811; 97602; J7030; Q0162; U0002